=== PATIENT | male | born 1955 | race Caucasian/White ===

== ENCOUNTER 2018-06-20 09:11 | Emergency (ER) | payer BC ==
[~2018-06-20] VITALS: Ht 175.3 cm; Wt 90.7 kg
[~2018-06-20 09:11] MED LIST: ACYC800T PO; ASPI-630 PO; CYCL10TA2 PO; DOCU-109 PO; FISH1CAP PO; GABA300C18 PO; HYDR-2761 PO; IPRA0.2S5 IH; IPRA30SP NS; LISI10TA2 PO; NAPR500T8 PO; OMEP40CA5 PO; Oxycodone Hcl/Acetaminophen PO
[2018-06-20 09:57] VITALS: BP 168/105
--- NOTE | 2018-06-20 11:06 | RAD ---
EXAM: AP, oblique, lateral and merchant view left knee DATE: 06/20/2018 10:56 AM INDICATION: INJURED LEFT KNEE PLAYING GOLF 10 DAYS AGO, LEFT KNEE PAIN COMPARISON: No Prior FINDINGS: Postoperative changes of left patellar resection are seen with associated heterogeneous ossification. Small left knee joint effusion. Chondrocalcinosis. Small medial compartment osteophytes are seen IMPRESSION: 1. Changes of prior patellar resection are seen. 2. No evidence of acute fracture or dislocation. 3. Left knee joint degenerative change with medial compartment osteophytes. 4. Chondrocalcinosis suggesting CPPD deposition. Electronically signed by: Akhil James MD (06/20/2018 11:03 AM) [id number]
[2018-06-20] MEDS ORDERED: HYDR-3164 PO (11:32)
--- NOTE | 2018-06-20 11:33 | PHYS DOC ---
Past Medical History Past Medical History: No Pertinent History Past Surgical History: Other Additional Past Surgical Histo: BILAT KNEE,LOWER BACK,RIGHT THUMB, Additional Information: CIGARS Alcohol Use: Occasionally Drug Use: None Adult General Chief Complaint Chief Complaint: KNEE INJURY HPI HPI Patient is a 62 year old male who presents complaining of 4 out of 10 intermittent sharp left knee pain that began on June 10, 1918 when [place]. Patient denies any known injury. States the pain is worse on weight bearing. Patient states he has tried over-the -counter remedies including NSAIDs with no relief. He states he has an appointment with orthopedic doctor on June 29, 2018 but he cannot wait until then. Review of Systems Review of Systems Constitutional: Denies fever or chills [] Musculoskeletal: Reports left knee pain Integument: Denies rash or skin lesions [] Neurologic: Denies headache, focal weakness or sensory changes [] All other systems were reviewed and found to be within normal limits, except as documented in this note. Allergies Allergies Allergies Coded Allergies Type Severity Reaction Last Updated Verified No Known Drug Allergies 05/08/14 No Physical Exam Physical Exam Constitutional: Well developed, well nourished, no acute distress, non-toxic appearance. [] Skin: Warm, dry, no erythema, no rash. [] Back: No tenderness, no CVA tenderness. [] Extremities: Left knee with old healed surgical incision on the anterior aspect of the knee. Diffuse tenderness throughout the knee. 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 Full active range of motion to the left knee. 2 left pedal pulse. Cap refill less than 2 seconds the left lower extremity. Neurologic: Alert and oriented X 3, normal motor function, normal sensory function, no focal deficits noted. [] Psychologic: Affect normal, judgement normal, mood normal. [] Current Patient Data Vital Signs Vital Signs Date Time Temp Pulse Resp B/P (MAP) Pulse Ox O2 Delivery O2 Flow Rate FiO2 06/20/18 09:57 98.0 77 18 168/105 (126) 97 Room Air 98.0 EKG EKG [] Radiology/Procedures Radiology/Procedures []PROCEDURE: KNEE LEFT 4V EXAM: AP, oblique, lateral and merchant view left knee DATE: 06/20/2018 10:56 AM INDICATION: INJURED LEFT KNEE PLAYING GOLF 10 DAYS AGO, LEFT KNEE PAIN COMPARISON: No Prior FINDINGS: Postoperative changes of left patellar resection are seen with associated heterogeneous ossification. Small left knee joint effusion. Chondrocalcinosis. Small medial compartment osteophytes are seen IMPRESSION: 1. Changes of prior patellar resection are seen. 2. No evidence of acute fracture or dislocation. 3. Left knee joint degenerative change with medial compartment osteophytes. 4. Chondrocalcinosis suggesting CPPD deposition. Electronically signed by: Akhil James MD (06/20/2018 11:03 AM) [id number] DICTATED and SIGNED BY: AKHIL JAMES MD DATE: 06/20/18 1103 Course & Med Decision Making Course & Med Decision Making Pertinent Labs and Imaging studies reviewed. (See chart for details) This is a 62-year-old male patient presenting to the ED today with left knee pain, no known injury. Left knee x-rays interpreted by radiologist were negative for any acute findings. Patient has an appointment with orthopedic doctor on June 29, 2018. He's been using [id number] remedies with no relief. Give him a prescription of hydrocodone. Encouraged him to ice elevate the extremity. Encouraged him to follow-up with orthopedic doctor. Dragon Disclaimer Dragon Disclaimer This electronic medical record was generated, in whole or in part, using a voice recognition dictation system. Departure Departure Impression: Primary Impression: Knee pain, left Disposition: 01 HOME, SELF-CARE Condition: STABLE Referrals: UNKNOWN PCP NAME (PCP) Follow-up with the orthopedic doctor on 06/29/2018 as scheduled or you can call them for sooner appointment Patient Instructions: Knee Pain, [id number] Additional Instructions: You were evaluated in the emergency room for knee pain. We could not find any acute cause for your pain. Would recommend he continue following up with the orthopedic doctor Scripts Hydrocodone/Apap 5-325 (NORCO 5-325 TABLET) 1 Each Tablet 1 TAB PO Q4-6HRS, #20 TAB Prov: CASHMARY FRAGOSO HERVE 06/20/18 Problem Qualifiers Primary Impression: Knee pain, left Chronicity: acute Qualified Codes: M25.562 - Pain in left knee CASHMARY FRAGOSO HERVE Jun 20, 2018 11:33
== END 2018-06-20 11:43 | disposition home or self-care (01) ==
LOC: ER 09:11
DX: M25.562 Pain in left knee (principal); F17.210 Nicotine dependence, cigarettes, uncomplicated
CPT/HCPCS: 73564; 99283

== ENCOUNTER → 2018-07-11 | Outpatient (CLI) | payer BC ==
[2018-06-20 09:57] VITALS: BP 168/105
[~2018-07-11] MED LIST changes: +HYDR-3164 PO
--- NOTE | 2018-07-11 15:45 | KCIC ---
MR of the left knee HISTORY: Anteromedial left knee pain for 6 weeks. Recent injection. TECHNIQUE: Routine multiple planar sequences are obtained. FINDINGS: Degenerative tear. There is mild extrusion of tissue into the tibial recess compatible with a small flap component. No evidence of a lateral meniscal tear. The anterior and posterior cruciate ligaments are intact. Medial collateral ligament is intact. Iliotibial band unremarkable. Fibular collateral ligament, biceps femoris tendon and popliteus tendon are intact. There has been resection of the patella. There is a very small amount of residual bone or ossification. Scarring of the quadriceps tendon and patellar tendon without acute rupture. Small joint effusion. No significant Love's cyst. Mild/moderate chondromalacia at the medial joint, mild at the lateral joint. No aggressive bone destruction or acute fracture. IMPRESSION: 1. Medial meniscal tear. 2. Degenerative changes about the knee. Electronically signed by: Toribio Daly MD (07/11/2018 3:43 PM) [id number]
== END | disposition home or self-care (01) ==
LOC: KCIC MRI 14:10
PROVIDERS: ATTEND Orthopaedic Surgery
DX: S83.242A Other tear of medial meniscus, current injury, left knee, initial encounter (principal); M17.12 Unilateral primary osteoarthritis, left knee; M25.462 Effusion, left knee; M94.262 Chondromalacia, left knee; X58.XXXA Exposure to other specified factors, initial encounter; Y93.89 Activity, other specified; Y92.89 Other specified places as the place of occurrence of the external cause; Y99.8 Other external cause status
CPT/HCPCS: 73721